=== PATIENT | male | born 1960 | race Caucasian/White ===

== ENCOUNTER 2025-04-07 07:55 | Inpatient (IN) | payer BC, SELFPAY ==
[2025-04-04 17:22] VITALS: BP 164/104
[2025-04-04 17:59] LABS: ALT (SGPT) 13 U/L (0-50); AST (SGOT) 35 U/L (17-59); Albumin 5.0 g/dl (3.5-5.0); Alkaline Phosphatase 47 U/L (38-126); Blood Urea Nitrogen 19 mg/dl (9-20); Calcium 9.2 mg/dl (8.4-10.2); Carbon Dioxide 24 mmol/L (22-30); Chloride 106 mmol/L (98-107); Glucose 111 mg/dl (70-99); Potassium 4.5 mmol/L (3.5-5.1); Sodium 137 mmol/L (135-145); Total Protein 7.4 g/dl (6.3-8.2); eGFR > 60.00
[2025-04-04 18:15] LABS: Hematocrit 40.5 % (39.0-52.0); Hemoglobin 14.1 g/dL (13.0-18.0); Mean Corp Hgb Conc. 34.8 g/dL (33.0-37.0); Mean Corpuscular Volume 90.4 fL (80.0-94.0); Nucleated Red Blood Cells % 0 % (-); Platelet Count 149 10^3/uL (130-400); Red Cell Dist. Width 13.0 % (11.5-14.5)
[2025-04-04 22:45] VITALS: BP 150/97
[2025-04-04 23:00] VITALS: BP 139/96
--- NOTE | 2025-04-04 23:00 | ED.GENMED ---
History of Present Illness
General
Chief Complaint: Fainting Sensation
Source: patient
Exam Limitations: none
Time Seen by Provider: 04/04/25 23:00
Nursing documentation reviewed up to this point in time: agreed with
History of Present Illness
History of Present Illness:
Note:
CHIEF COMPLAINT(S)
Dizziness and episodes of syncope.
HISTORY OF PRESENT ILLNESS
The patient is a 64-year-old male with a history of Parkinsons disease, CAD, mitral valve repair and placement of two stents, presenting with recurrent dizziness and syncopal episodes. The dizziness and faintness began to noticeably worsen over the
last 36 hours, occurring three times, nearly resulting in loss of consciousness in a public bathroom. These episodes were previously occasional and mostly happened at night, but they are now more frequent and intense. Patient has fallen and hit his
head multiple times. The patient notes his typical dizziness is aggravated by standing and sometimes results in falls. His blood pressure has had significant fluctuations, with postural changes noted, and recent recordings as high as 187/105 mmHg
while supine and as low as 87/50 mmHg upon standing. His astrobiologist thinks that this is happening as a result of his ropinirole and so he was started on midodrine. The patient recently had his midodrine dosage increased from 5mg to 10mg, three
times daily, to manage this. He denies headaches but has experienced falls resulting in head injuries, including hitting the back of his head. He has frequent urination episodes, particularly following these syncopal events. The patients current
medications for Parkinsons include levodopa-carbidopa, switched from pramipexole due to side effects causing hypotension. He denies chest pain, shortness of breath.
ADDITIONAL HISTORY OBTAINED FROM SOURCES OTHER THAN THE PATIENT
According to the spouse, the patients syncopal episodes have resulted in falls with head trauma. The spouse reported blood pressure readings at home varying significantly. The spouse expressed a concern about increasing frequency and severity of the
episodes, noting incoherence and loss of speech in the patient post-fall.
CHRONIC MEDICAL CONDITIONS SIGNIFICANTLY AFFECTING CARE
Chronic conditions affecting care: Parkinson disease, history of myocardial infarction, mitral valve repair, and placement of coronary stents.
REVIEW OF SYSTEMS
see HPI
PHYSICAL EXAM
Nursing notes reviewed and vital signs reviewed.
Examination findings as follows:
General: Patient is well appearing and in no acute distress; non-toxic
Skin: Warm and dry, no rashes or lesions
Head: Normocephalic, atraumatic
Eyes: Sclera non-icteric. EOMs intact.
Cardiac: Regular rate and rhythm, no murmurs
Peripheral Vascular: No lower extremity swelling or edema
Pulm: Normal respiratory effort, no wheezes, rales, rhonchi
Abdomen: No abdominal tenderness to palpation
Neuro: CN II-XII intact, no focal neurologic deficits.
Psychiatric: Appropriate mood and affect.
DIFFERENTIAL DIAGNOSIS
The Differential Diagnosis includes, in no particular order and is not limited to:
- Orthostatic hypotension
- Medication-induced hypotension
- Neurogenic orthostatic hypotension due to Parkinsons disease
- Syncope secondary to cardiac arrhythmia
- Dehydration
- Vestibular dysfunction
- Structural cardiac issues
- Autonomic dysregulation
- Syncope due to vaso-vagal episodes
- Intracranial process from repeated head trauma
PLAN
Conduct a CT scan of the head to rule out intracranial hemorrhage or injury due to recurrent head trauma from falls. Monitor blood pressure with orthostatic vitals assessments. Evaluate the necessity of a medication adjustment in consultation with
the patients primary neurologist and astrobiologist. Educate the patient and family on safety measures to prevent falls and monitor closely for future syncopal episodes. Consider referral to a astrobiologist for further evaluation of cardiovascular
control in the setting of fluctuating blood pressure and syncope.
REVIEW OF PRIOR RECORDS
No prior records in [facility] to review, no discharge summary
MDM/DISPOSITION
The patient is a 64-year-old male with a history of Parkinsons disease, CAD, mitral valve repair and placement of two stents, presenting with recurrent dizziness and syncopal episodes. He has a history of Parkinson's on crexont, rasagiline,
ropinirole, midodrine. He has been having daily syncopal episodes and falls for the past week and his gait is unsteady. reports that she can barely walk with him without having with swallowing. He is on her orthostatic hypotension at home
and his astrobiologist increase his midodrine but his symptoms seem to get worse after that. In the ER from lying to standing he drops from 130 systolically to 90 and we are unable to have him stand up. He has been getting fluids. Case discussed
with ED attending. Patient referred for admission.
Review of Systems
Review of Systems
All Other Systems: ROS reviewed and negative except as documented in HPI and ROS
Phy Exam
Physical Exam
Physical Exam:
see hpi
Course
Orders/Labs/Results
Orders:
Orders
04/04/25 17:11
Electrocardiogram (*1) Urgent
Reason for Study: Syncope
EKG- Treatment ONCE
04/04/25 17:38
CMP [Comprehensive Metabolic Panel] Urgent
Complete Blood Count/With Diff Urgent
04/04/25 23:29
Orthostatic VS- Treatment ONCE
04/04/25 23:51
0.9% Sodium Chloride 500 ml [Nss] 500 ml IV BOLUS
04/05/25
CT Head W/o Iv Contrast Urgent
Reason For Exam: head trauma, syncopal episode
04/05/25 04:57
Admit/Transfer Patient As Directed
Co-Sign Provider:
Level of Care: Observation services
Assign to:: Telemetry
Physician / Group: aristides
Diagnosis: orthostatic hypotension
Reason for Telemetry: Syncope
Date to Stop Telemetry: 04/07/25
Time to Stop Telemetry: 11:00
PRN Pain Medication Management As Directed
May give lesser potent ordered pain med per pt: Yes
preference::
Protocol:: Medication orders for pain may be administered in a
manner that supports deferring to patient preference
when the pt is:
- Requesting an ordered lesser potent pain medication.
Least to most potent pain medications are defined
as: acetaminophen < NSAID < tramadol < opioids
(morphine, oxycodone, hydromorphone).
- Requesting a lesser dose of the same medication IF
ORDERED.
- Requesting a less intrusive route of administration
if both routes are prescribed by the provider (PO <
IV).
04/05/25 04:58
Code Status As Directed
Resuscitation Status: Full Code
04/05/25 05:47
0.9% Sodium Chloride 1000 ml [Nss] 1,000 ml IV 125 mls/hr
Acetaminophen [Tylenol] 650 mg PO Q4HPRN PRN
Bisacodyl [Dulcolax] 10 mg RECTAL [id number] PRN
Docusate W/Senna [Senokot-S] 1 tablet PO BIDPRN PRN
Polyethylene Glycol Powder [Miralax] 17 grams PO DAILYPRN PRN
04/05/25 05:47
CARDIOLOGY CONSULT Routine
Consulting Provider: Khoa Ferrell
Was physician already notified: No
Reason for consult: severe orthostatic hypotension, pre-syncope, h/o mv repair
Consult Notification Routine
Specialty to Notify: Cardiology
Urinalysis Routine
Urine Sodium Routine
Activity As Directed
Activity Level: With Assistance
Intake/ Output As Directed
Frequency: Per unit guidelines
Neurological Checks As Directed
Frequency: q4h
Orthostatic Vital Signs As Directed
Orthostatic VS Frequency: q8h
Pneumatic Compression Sleeves As Directed
Type: Knee high
Vital Signs As Directed
Frequency: Per unit guidelines
Pulse Ox/spot Check [RESP] Routine
Quantity: 1
DX Deep Vein Thrombosis Video Routine
04/05/25 06:00
Echo 2D MMode Color/Doppler IN AM
Reason for Study: syncope, h/o mv repair
Regular
BNP [NT-proBNP] IN AM
Cortisol, Random IN AM
TSH Reflex To Free T4 IN AM
04/05/25 08:00
Aspirin Low Dose EC [Aspir Low (Enteric Coated)] 81 mg PO DAILY
Midodrine [ProAmatine] 10 mg PO TID
Rasagiline Mesylate 1 mg PO DAILY
Rosuvastatin Calcium [Crestor] 40 mg PO DAILY
carbidopa-levodopa [Crexont] See Dose Instructions PO TID
04/05/25 22:00
Ezetimibe [Zetia] 10 mg PO HS
ropinirole See Dose Instructions PO HS
04/07/25 11:00
DC Protocol for Telemetry ONCE
Abnormal Lab Results
04/04/25
17:38
RBC 4.48 L 10^6/uL
(4.70-6.10)
MCH 31.5 H pg
(27.0-31.0)
Lymphocytes % 19.2 L %
(20.5-51.1)
Monocytes % 9.4 H %
(1.7-9.3)
Glucose 111 H mg/dl
(70-99)
04/04/25 17:38
04/04/25 17:38
Vital Signs
Initial and Last Documented VS:
Initial Vital Signs
Temp Pulse Resp BP Pulse Ox
99 F 90 16 164/104 98
04/04/25 17:22 04/04/25 17:22 04/04/25 17:22 04/04/25 17:22 04/04/25 17:22
Last Documented Vital Signs
Temp Pulse Resp BP Pulse Ox
99 F 77 20 118/70 99
04/04/25 17:22 04/05/25 04:30 04/05/25 03:30 04/05/25 04:00 04/05/25 00:00
*Pulse Oximetry
SaO2: 99
Oxygen Mode of Delivery: Room air
Patient hypoxic: no
*Critical Care Note
Total Time (30-74mins, 75-104mins- exclusive of procedures): Not Applicable
ED Attending Note
-
Portions of this chart may have been created with voice recognition software.� Occasional wrong word or��sound alike� substitutions may have occurred due to the inherent limitations of voice recognition software.
Discharge Plan
Departure
Patient Disposition: Admit
Date of Disposition: 04/05/25
Time of Disposition: 03:08
Admit to: Med/Surg
Presentation/result/management discussed w/ accepting MD/DO: Hospitalist
Condition: Fair
Discharge Problem:
Orthostatic hypotension
Interventions
Interventions:
*Risk Screen - Suicide Last Done: 04/04/25 17:25
*General Assessment Last Done: 04/04/25 22:45
*Neglect/Abuse Screening Last Done: 04/04/25 17:25
*ED- Fall Risk Assessment Last Done: 04/04/25 22:45
*ED COVID-19 Vaccine History Last Done: 04/04/25 22:45
ED- Cardiac Assessment Last Done: 04/04/25 22:45
ED- Neurological Assessment Last Done: 04/04/25 22:45
[2025-04-04 23:34] VITALS: BP 138/95
[2025-04-04 23:36] VITALS: BP 90/65
[2025-04-04 23:43] VITALS: BP 138/95; BP 90/65; PULSE 86; PULSE 88
--- NOTE | 2025-04-04 23:43 | EDRN ---
Informed [facility] about patients orthostatic vitals, did not stand patient as his blood pressure dropped from laying to sitting.
[2025-04-05] VITALS (22 sets, daily range): BP systolic 77–149; BP diastolic 40–118; PULSE 73–90; BMI 23.1
[2025-04-05] MEDS: NSS 500 IV (00:14)
--- NOTE | 2025-04-05 01:08 | EDRN ---
Updated patient on when going to CT and patient used urinal to urinate, no complaints.
--- NOTE | 2025-04-05 04:32 | HPS.HSE ---
Family Physician
-
Family Physician: NOT KNOW UNKNOWN - PT DOES
Chief Complaint
-
Orthostatic syncope
History of Present Illness
This is a 61-year-old male with past medical history significant for CAD, severe MR s/p repair, Parkinson's disease on COVID evaluated by, rasagiline and ropinirole, hyperlipidemia presenting to the emergency department with concern after
presyncopal episodes.
Patient has been having daily syncopal episodes and falls over the last 1 week. He has an unsteady gait now. Spouse reports that he is able to barely walk without support. Patient reports that he slowly developed metastatic hypotension as well as
dizzy spells since initiation of ropinirole. He reports that the ropinirole has improved his symptoms of Parkinson's. He is neurologist that has reduced the dose from 2 mg to 1 mg. At the same time
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
Today he had multiple syncopal episodes but does not pass out. He has undergone training on how to get up slowly to avoid dizziness and orthostatic syncope. Today he was closing the door when it suddenly became weak and his leg gave way falling
down and almost smacking his head in a dangerous way. He called his financial services internship who referred him to the emergency department for evaluation.
He has no chest pain, palpitations orthopnea or PND. He denies any diarrhea. He denies any extensive stay in the sun. Reports that his diet has been stable without any decreased appetite. There has not been any weight loss. There has not been
any lower extremity swelling. Denies any new murmurs. Patient denies any melena or hematochezia.
In the emergency department he was afebrile with a temp of 99F, blood pressure was 134/80 supine and systolically decreased to 90 with standing despite getting IV fluids. He was not tachycardic.
Head CT was unremarkable.
CBC was unremarkable with a hemoglobin of 14.1.
ECG shows normal sinus rhythm at a rate of 66 with 4 degree AV block.
Electrolytes were normal with a potassium of 4.5, bicarb of 24 with normal BUN and creatinine.
Medical History
Past Medical History
Past Medical History: Reports Hypercholesterolemia and Other
Additional Past Medical History:
Coronary disease status post stent, severe mitral regurgitation status post repair
Past Surgical History: Reports Cardiac (Mitral valve repair)
Social History
Tobacco: Non-smoker
Alcohol: None
Drug: None
Personal:
Living: With Family
Family History
Family History: Not pertinent
Allergies / Home Medications
Allergies reflects when Allergies were last updated in [facility].
Home Medications with original date entered in [facility]
Allergy/Medication List:
Allergies
Allergy/AdvReac Type Severity Reaction Status Date / Time
No Known Allergies Allergy Unverified 04/04/25 17:25
Home Medications
aspirin 81 mg tablet 81 mg PO DAILY 04/05/25
carbidopa 87.5 mg-levodopa ER 350 mg capsule,immed and extend release (Crexont) 2 cap PO TID 04/05/25
ezetimibe 10 mg tablet 10 mg PO HS 04/05/25
midodrine 10 mg tablet 10 mg PO TID 04/05/25
rasagiline 1 mg tablet 1 mg PO DAILY 04/05/25
ropinirole 2 mg tablet,extended release 24 hr 2 mg PO HS 04/05/25
rosuvastatin 40 mg tablet 40 mg PO DAILY 04/05/25
Review of Systems
-
Constitutional: Reports No Symptoms
EENT: Reports No Symptoms
Respiratory: Reports No Symptoms
Cardiac: Reports No Symptoms
Abdomen/GI: Reports No Symptoms
: Reports No Symptoms
Musculoskeletal: Reports No Symptoms
Skin: Reports No Symptoms
Neurological: Reports Dizzy
Endocrine: Reports No Symptoms
Hematologic/Lymphatic: Reports No Symptoms
Psych: Reports No Symptoms
Physical Exam
Vital Signs
Vital Signs
Temp Pulse Resp BP Pulse Ox
99 F 93 24 134/83 99
04/04/25 17:22 04/05/25 02:30 04/05/25 02:15 04/05/25 02:00 04/05/25 00:00
Physical Exam
General: Well Developed, Well Nourished and No Apparent Distress
HEENT: NormoCephalic, Moist mucous membranes and Atraumatic
Respiratory: Clear
Cardiac: S1/S2 and Regular Rhythm; No Murmur or Rub
GI: Soft, Non Tender, Non Distended and Normal Bowel Sounds; No Organomegaly
Rectal: Deferred by Provider
Musculoskeletal: No Clubbing, No Cyanosis and No Edema
Skin: No Rash
Neuro: Nonfocal/grossly intact
Laboratory Results
-
04/04/25 17:38
04/04/25 17:38
Laboratory Results
Total Bilirubin 1.1 mg/dl (0.2-1.3) 04/04/25 17:38
AST 35 U/L (17-59) 04/04/25 17:38
ALT 13 U/L (0-50) 04/04/25 17:38
Alkaline Phosphatase 47 U/L (38-126) 04/04/25 17:38
Data Reviewed
-
CT Scan: Report Reviewed by me
Medical Tests (Nuc Med, Echo, EKG etc): Image Personally Visualized and interpreted
Lab Data: Labs Reviewed by me
Old Records: Reviewed
Impression/Plan
-
IMPRESSION:
61-year-old male with past medical history significant for Parkinson's disease, CAD status post stenting, mitral valve repair, development of orthostatic hypotension and recurrent dizziness and syncopal episode was brought to the emergency
department for syncopal episode and a fall by spouse with concern for worsening symptoms. Found to be orthostatic by about 40 systolic blood pressure points today in the emergency department. Workup otherwise negative.
PLAN:
Syncope/orthostatic hypotension
- Admit to telemetry observation
- Continue hydration for now, check urine sodium
- Repeat orthostatics in the morning, if improving with fluids, can recommend salt intake or fludrocortisone
- Check echocardiogram
- Check carotid ultrasounds
- Check cortisol and tsh
- If still orthostatic with normal echo and another liter of fluid resuscitation, will need medication adjustment
- Patient already on midodrine 10 mg 3 times daily, next dose will be combination of midodrine with fludrocortisone or with droxidopa,
- cardiology consult (patient follows with Dr. Sameer Sanz at [facility].
- Consider nephrology consult but for now will have to continue LUCINDA correct sounds, ropinirole and rasagiline
DVT prophylaxis�SCDs
CODE STATUS�full code
--- NOTE | 2025-04-05 04:38 | EDRN ---
Hospitalist in at bedside working on admission.
[2025-04-05] MEDS: NSS 1000 IV ×2 (06:17→14:27)
[2025-04-05 07:38] LABS: Cortisol, Random 6.1 ug/dl
[2025-04-05] MEDS: CRESTOR 40 MG PO (09:12)
[2025-04-05] MEDS: RASAGILINE MESYLATE 1 MG PO (09:12)
[2025-04-05] MEDS: ASPIR LOW (ENTERIC COATED) 81 MG PO (09:12)
[2025-04-05 09:21] LABS: Urine Character Clear (Clear)
--- NOTE | 2025-04-05 09:25 | CM ---
CM reviewed chart and met with pt bedside in ED. IA completed, OBS form signed. Lives with , multistory home, no KENDRA, has first floor BR/BA
Independent in ADLs, personal care, driving and ambulation at baseline. Uses walking stick for ambulation
No DME in home, No hx VN/SNF
PCP: Gerhard Antunez
Pharmacy: [facility]
Discharge plan: Anticipate home, watch for needs
[2025-04-05] MEDS: NON-FORMULARY ITEM 2 CAP PO ×3 (10:07→21:23)
--- NOTE | 2025-04-05 11:37 | CON.CAR ---
Addendum entered and electronically signed by Franki Low MD 04/05/25 15:36:
I saw and examined the patient.
The Field Technical Support Consultant's note was reviewed and I agree with the note.
Comment:
GEN: No distress, awake, Ox3
HEENT: supple, anicteric, mmm
LUNGS: CTA, no wheezes/rales
CV: Reg, S1/S2, 2/6 syst apex
ABD: soft, BS+, NT/ND
EXT: No edema
NEURO: mild tremor
SKIN: No rash
plan:
64-year-old male with past medical history of Parkinson's disease, coronary artery disease, mitral valve repair 2014 with resultant moderate mitral regurgitation followed with [facility] presents with multiple episodes of dizziness,
lightheadedness and syncope. He has had chronic symptoms of lightheadedness in the past but things have worsened recently. It was felt he was dehydrated recently and had an episode in the middle of the day. His usual episodes syncope are at
night. He has previously been on carbidopa/levodopa but was started a year ago on ropinirole. Since the addition of the ropinirole and he has had orthostasis and was placed on midodrine. We are asked to evaluate his syncope.
I suspect his syncope is multifactorial likely combination of underlying Parkinson's disease and the addition of ropinirole. I will consult neurology to have them evaluate the long-term benefit of the ropinirole and whether we could stop this
medication and follow his orthostasis/dizziness.
Echocardiogram today with a preserved ejection fraction. His mitral valve repair is unchanged with moderate mitral regurgitation.
Will continue hydration today but with moderate mitral regurgitation would not over hydrate. Will add compression stockings to try to help with orthostasis.
Continue medical therapy for coronary artery disease. He will continue the aspirin and rosuvastatin. Would avoid blood pressure medications with his orthostasis and syncope
Continue to follow with telemetry
Original Note:
Consultation
Consultation Request
Date/Time Consultation Performed: 04/05/25
Requesting Provider: Dr. Mera
Performing Provider: Ondina Clay PA-C for Dr. Low
Reason for Consultation: syncope
Medical History
-
Chief Complaint: syncope
History of Present Illness:
Patient is a 64 yo M with history of Parkinson's disease followed by [place] [facility] who is chronically maintained on carbidopa-levodopa. He reports he was started about a year ago on ropinirole in addition. Since that time he has had issues with
orthostatic hypotension and syncope. He had been started on midodrine due to symptoms and this was uptitrated after he had 5 syncopal episodes in 1 evening when they were travelling in the [place] in December. This was felt to be in part due to
dehydration and 'overdoing it.' He reports he has had some intermittent lightheadedness since that time, mostly in the evenings/overnight hours after he takes his ropinirole and gets up to urinate from bed. He had previously been on Flomax which
was stopped. He had several syncopal episodes in the last 3 days but then yesterday he had an episode at 4PM, which has never happened before. He states he was outside attempting to open the door as they were getting ready to go see a movie and hit
his head on the concrete. Of note, by review of records from primary information technology assistant patient also has prior MV repair with at least mod MR by most recent echo in 08/2024. Cardiology consulted for assistance of orthostasis management.
PMH:
Recurrent syncopal episodes
Orthostatic hypotension
Parkinson's disease
Mitral valve prolapse with severe MR status post mitral valve repair 02/2016, Dr. Hinson
at least mod MR by echo 08/2024
History of postoperative atrial fibrillation 02/2016 without further recurrence
CAD status post NSTEMI with RCA PCI 11/2015
Dyslipidemia
History of fatigue with beta-dianna
Past Medical History
Past Medical History: Other (in HPI)
Social History
Tobacco: Non-Smoker
Alcohol: None
Personal:
Living: With Family
Allergies / Home Medications
Allergy/AdvReac Type Severity Reaction Status Date / Time
No Known Allergies Allergy Unverified 04/04/25 17:25
�Medication �Instructions �Recorded �Confirmed �Type
aspirin 81 mg tablet 81 mg PO DAILY Heart 04/05/25 04/05/25 History
Disease/Condition
carbidopa 87.5 mg-levodopa ER 350 2 cap PO TID Neurological Condition 04/05/25 04/05/25 History
mg capsule,immed and extend
release (Crexont)
ezetimibe 10 mg tablet 10 mg PO HS High Cholesterol 04/05/25 04/05/25 History
fluoxetine 20 mg tablet 20 mg PO DAILY Mental 04/05/25 04/05/25 History
Health/Anxiety
midodrine 10 mg tablet 10 mg PO TID Blood Pressure 04/05/25 04/05/25 History
rasagiline 1 mg tablet 1 mg PO DAILY Neurological 04/05/25 04/05/25 History
Condition
ropinirole 2 mg tablet,extended 2 mg PO HS Neurological Condition 04/05/25 04/05/25 History
release 24 hr
rosuvastatin 40 mg tablet 40 mg PO DAILY High Cholesterol 04/05/25 04/05/25 History
Review of Systems
-
History Source: Patient and Family
All other systems: Negative unless noted
Physical Exam
Vital Signs
Temp Pulse Resp BP Pulse Ox
97.8 F 74 16 129/78 97
04/05/25 07:31 04/05/25 09:13 04/05/25 07:31 04/05/25 09:13 04/05/25 07:31
Lab Results
04/04/25 17:38
04/04/25 17:38
Rmm-V-Updjbfhdmfg Pept 343 pg/ml 04/05/25 06:16
Physical Exam
General: No Apparent Distress and Comfortable
HEENT: Normocephalic, Anicteric and Moist Mucous Membranes
Respiratory: Clear and Non Labored Respirations
Cardiac: S1/S2, Regular Rhythm and Murmur
GI: Soft, Non Tender, Non Distended and Normal Bowel Sounds
Musculoskeletal: No Clubbing, No Cyanosis and No Edema
Skin: Warm and Dry
Neuro: AO x 3 and Other (slow speech)
Impression / Plan
-
Primary Speech Clinician: Dr. Sanz of [facility]
Assessment:
Presentation with syncope
Recurrent syncopal episodes
Orthostatic hypotension
Parkinson's disease
Mitral valve prolapse with severe MR status post mitral valve repair 02/2016, Dr. Hinson
At least mod MR by echo 08/2024
History of postoperative atrial fibrillation 02/2016 without further recurrence
CAD status post NSTEMI with RCA PCI 11/2015
Dyslipidemia
History of fatigue with beta-dianna
ECHO 08/31/2024: Technically difficult study, EF 59%, #38 mitral annuloplasty band with neocord insertion in 2016, possible flail segment of a portion of posterior leaflet distal to near cord insertion, at least moderate eccentric anteriorly
directed jet of MR, transmitral gradient of 4 mmHg, severely dilated LA, at least mild TR
Plan:
- Patient presented with syncope. He has history of Parkinson's disease with orthostatic hypotension and recurrent syncopal episodes having recently been uptitrated on midodrine.
- head CT negative for acute abnormality
- records obtained and reviewed from primary information technology assistant office including last echo from 08/31/24 and office visit from 03/01/25
- He is on several medications which carry side effects of orthostasis
- his Parkinson's disease could also be contributing to dysautonomia
- would recommend neurology input to discuss possible alternatives to Parkinson's regimen which may carry less orthostatic side effects
- follow ortho VS
- add compression stockings
- could consider florinef, and abd binder if no better alternatives
- he also has history of MV repair with at least mod MR by last echo which could also be contributing to syncope. check echo
- EKG SR with 1st degree av block. follow on tele given history of post op afib
- reviewed with nursing
- reviewed with patient and multiple family members at bedside
- d/w hospitalist via TT
Data Reviewed
-
EKG: Tracing Personally Visualized and interpreted
CT Scan: Report Reviewed by me
Medical Tests (Nuc Med, Echo etc): Report Reviewed by me
Labs: Labs Reviewed by me
Old Records: Requested and Reviewed
--- NOTE | 2025-04-05 13:27 | CON.NEURO4 ---
Addendum entered and electronically signed by Matty Cooney MD 04/05/25 17:13:
Studies reviewed.
I have personally examined the patient. I reviewed and agree with the RIPSHEAR OPERATOR's Note.
My addenda:
Awake, interactive. No acute distress.
Speech mildly hypophonic.
Follows 2-step requests w/o difficulty. No tremor.
Extra-ocular movements with a rhythmic nystagmus with primary gaze
Facial movements full and symmetric. Hearing intact to normal conversational volume.
Normal UE movements bilaterally.
Neck: full ROM.
Chest: no dyspnea
Heart: no JVD
Ext: (-) Clubbing, (-) Cyanosis, (-) Edema
IMPRESSIONS/RECOMMENDATIONS:
Abrupt onset of worsening gait with previous diagnosis of parkinsonism. 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
The patient's gait dysfunction is most likely secondary to significant orthostatic hypotension and worsened currently by exposure to extreme heat
Continue midodrine
Add abdominal binder
Encourage fluids
Patient may require additional medication for blood pressure elevation in the form of fludrocortisone or droxidopa
Continue carbidopa/levodopa, continue ropinirole
Follow orthostatic blood pressures with 3-minute increments between each body position change
D/W patient / family
All questions answered.
Will continue to follow patient.
Original Note:
Consultation - Neurology 4
-
CONSULTING PHYSICIAN: Matty Cooney MD
REFERRING PHYSICIAN: Hospitalists/Dr. Mera
DICTATED BY: DE Bower
DATE/TIME OF REQUEST: 04/05/25
DATE/TIME OF CONSULTATION: 04/05/25
Reason for Consultation: Orthostatic hypotension
History of Present Illness:
This is a 64-year-old right-handed male who has presented to the hospital on 04/04/25 with report of frequent passing out episodes. Patient is followed as an outpatient by Neurology Dr. Roger at [facility] for Parkinson's disease. In 2017 he
developed a right upper extremity tremor, bradykinesia, and rigidity and was ultimately diagnosed with Parkinson's disease in February 2019.
Patient and his spouse report that in October 2024 he started to have dizziness and had a fainting episode/fell to the ground. His neurologist decreased his ropinirole dosage from 4mg to 2mg at that time and he reports his symptoms improved. Then
while traveling in [place] a couple of months later he had another fainting/falling episode. He eventually saw his Securities Underwriter Dr. Sanz in February who started him on midodrine for orthostatic hypotension. They report he was improved after starting this,
until three days ago when he started having dizziness again and has now fainted three times in the past three days. They called his Neurologist and received no call back so they notified his Securities Underwriter who referred him to the ER. CT head was
obtained on arrival and is negative for any acute abnormalities. Blood pressure has been as low as 84/50. Patient denies any headache, vision changes, speech/swallow difficulty, numbness, and focal weakness. He reports anosmia. His has been
recording his orthostatic blood pressure readings at home for his usual neurologist, and that last week his SBP went from 145 sitting to 117 standing.
Past Medical History: Parkinson's disease, HLD, CAD, severe mitral regurgitation
Surgical History: Mitral valve repair
Family History: Reviewed and noncontributory.
Social History: Denies tobacco, alcohol, and illicit drug use.
Allergies: No known allergies.
Home Medications: See below.
Review of Symptoms:
Patient denies any fever, headache, chest pain, shortness of breath, GI or symptoms.
�Per the HPI.�All systems are reviewed negative except above.
Physical Exam:
The patient is afebrile, abdomen is nondistended, breathing is unlabored, skin is warm and dry, RLE with a rash, no edema.
Neurologic Examination:
The patient is awake, alert and oriented x 3. He is able to follow commands and answer questions appropriately. There is no aphasia or dysarthria. On cranial nerve assessment, pupils are 3 mm bilateral, round and reactive to light and
accommodation. Visual jordan are full. Extraocular movements are intact. Slight nystagmus noted with right gaze. Facial sensations are intact and bilaterally symmetrical, there is no facial asymmetry. Hearing is intact bilaterally to normal
conversation volume. Tongue palate and uvula are midline. Sternocleidomastoid strengths are full bilaterally. Motor strengths are 5/5 bilateral upper and lower extremities on medical research Belkofski scale. There is no drift or involuntary movement
noted. Deep tendon reflexes are 2+ bilateral upper and lower extremities and Babinski is absent bilaterally. Sensations of touch, temperature and vibration are intact and bilaterally symmetrical. Coordination is intact by finger to nose bilaterally.
Lab Results: See below.
Neuro Imaging:
1. CT Head 04/05/25: No acute intracranial abnormality.
Differentials for the patient's presentation include:
1. Orthostatic hypotension in the setting of a chronic neurodegenerative disease, Parkinson's disease, producing frequent dizziness/falls.
Patient has the following risk factors for their symptoms: Parkinson's disease
Recommendations:
-Increase water intake, drink as much as possible.
-Continue Midodrine 10mg TID.
-Attempt to reduce caffeine intake.
-Wear an abdominal binder daily when OOB.
-Slow position changes. Would not sleep with the HOB elevated to avoid hypertension while lying flat.
-Okay to continue Mediterranean diet, okay to be liberal with salt intake.
-Follow-up with as an outpatient with his usual Neurologist at [place] as soon as possible.
Discussed patient care with: Dr. Cooney, the patient, patient's family
Vital Signs and Labs
-
Vital Signs and Labs:
Vital Signs
Temp Pulse Resp BP Pulse Ox
97.8 F 73 15 103/75 99
04/05/25 07:31 04/05/25 13:30 04/05/25 11:30 04/05/25 13:00 04/05/25 13:30
Lab Results
04/04/25 17:38
04/04/25 17:38
Sodium 137 mmol/L (135-145) 04/04/25 17:38
Potassium 4.5 mmol/L (3.5-5.1) 04/04/25 17:38
BUN 19 mg/dl (9-20) 04/04/25 17:38
Glucose 111 mg/dl (70-99) H 04/04/25 17:38
Calcium 9.2 mg/dl (8.4-10.2) 04/04/25 17:38
Sct-P-Fecegieqgpg Pept 343 pg/ml 04/05/25 06:16
Medications
-
Active Medications
Generic Name Dose Route Start Last Admin
Trade Name Freq PRN Reason Stop Dose Admin
Acetaminophen 650 mg 04/05/25 05:47
Acetaminophen 325 Mg Tablet PO 05/03/25 05:46
Q4HPRN PRN
mild pain/ARREDONDO/temp> 100.4F
Aspirin 81 mg 04/05/25 08:00 04/05/25 09:12
Aspirin 81 Mg (Enteric Coated) Tablet PO 05/03/25 07:59 81 mg
DAILY KATHARINA Administration
Bisacodyl 10 mg 04/05/25 05:47
Bisacodyl 10 Mg Rectal Suppository RECTAL 05/03/25 05:46
[id number] PRN
constipation
Ezetimibe 10 mg 04/05/25 22:00
Ezetimibe (Zetia) 10 Mg Tablet PO 05/03/25 21:59
HS KATHARINA
Sodium Chloride 1,000 mls @ 125 mls/hr 04/05/25 05:47 04/05/25 06:17
Nss IV 1,000 mls
.Q8H KATHARINA Administration
Midodrine 10 mg 04/05/25 08:00 04/05/25 09:13
Midodrine 5 Mg Tablet PO 05/03/25 07:59 10 mg
TID KATHARINA Administration
Carbidopa-Levodopa [ 0 cap 06/25/25 08:00 04/05/25 10:07
Crexont] 87.5-350 Mg PO 05/03/25 07:59 2 cap
Capsule,Ir -Extend TID KATHARINA Administration
Rel Take 2 Capsule
Po Tid
Ropinirole 2 Mg 0 mg 04/05/25 22:00
Tablet Extended PO 05/03/25 21:59
Release 24 Hr Po Hs HS KATHARINA
Polyethylene Glycol 17 grams 04/05/25 05:47
Polyethylene Glycol Powder 17 Grams Packet PO 05/03/25 05:46
DAILYPRN PRN
constipation
Rasagiline 1 mg 04/05/25 08:00 04/05/25 09:12
Rasagiline (Azilect) 0.5 Mg Tablet (Non-Form) PO 05/03/25 07:59 1 mg
DAILY KATHARINA Administration
Rosuvastatin Calcium 40 mg 04/05/25 08:00 04/05/25 09:12
Rosuvastatin (Crestor) 20 Mg Tablet PO 05/03/25 07:59 40 mg
DAILY KATHARINA Administration
Senna/Docusate Sodium 1 tablet 04/05/25 05:47
Docusate W/Senna (Antonieta-Colace) Tablet PO 05/03/25 05:46
BIDPRN PRN
constipation
Sodium Chloride 0 flush 04/05/25 06:00
Sodium Chloride 0.9% (Flush) Syringe IV 05/03/25 05:59
PER PROTOCOL KATHARINA
Home Medications
�Medication �Instructions �Recorded
aspirin 81 mg tablet 81 mg PO DAILY Heart 04/05/25
Disease/Condition
carbidopa 87.5 mg-levodopa ER 350 2 cap PO TID Neurological Condition 04/05/25
mg capsule,immed and extend
release (Crexont)
ezetimibe 10 mg tablet 10 mg PO HS High Cholesterol 04/05/25
fluoxetine 20 mg tablet 20 mg PO DAILY Mental 04/05/25
Health/Anxiety
midodrine 10 mg tablet 10 mg PO TID Blood Pressure 04/05/25
rasagiline 1 mg tablet 1 mg PO DAILY Neurological 04/05/25
Condition
ropinirole 2 mg tablet,extended 2 mg PO HS Neurological Condition 04/05/25
release 24 hr
rosuvastatin 40 mg tablet 40 mg PO DAILY High Cholesterol 04/05/25
--- NOTE | 2025-04-05 13:50 | W.PN.UPDATE ---
Update Note
Progress Note Update
Seen and admitted by Dr. Alston.
Admitted for near syncope, falls and discovered to have orthostatic hypotension. Seen by cardiology. Will consult neurology for concern of orthostatic hypotension secondary to Parkinson's medication versus Parkinson disease itself. Discussed with
at bedside
[2025-04-05] MEDS: ZETIA 10 MG PO (21:24)
[2025-04-06] VITALS (7 sets, daily range): BP systolic 55–169; BP diastolic 35–97; PULSE 79–104; BMI 23.6
[2025-04-06] MEDS: NSS 1000 IV ×2 (01:06→11:28)
[2025-04-06] MEDS: CRESTOR 40 MG PO (07:49)
[2025-04-06] MEDS: RASAGILINE MESYLATE 1 MG PO (07:50)
[2025-04-06] MEDS: ASPIR LOW (ENTERIC COATED) 81 MG PO (07:50)
[2025-04-06] MEDS: NON-FORMULARY ITEM 2 CAP PO ×3 (07:51→22:10)
[2025-04-06] MEDS: FLORINEF 0.1 MG PO (08:55)
--- NOTE | 2025-04-06 10:02 | CM ---
Pt admitted for falls and orthostatic hypotension.
Requested PT eval from MD to assist in dc plan.
Neurology and Cardiology involved .
PLAN Will depend on PT eval and hospital course of care
--- NOTE | 2025-04-06 11:03 | W.PN.NEURO.1 ---
Addendum entered and electronically signed by Matty Cooney MD 04/06/25 13:39:
Studies reviewed.
I have personally examined the patient. I reviewed and agree with the KNIFEMAN's Note.
My addenda:
Awake, alert, interactive. No acute distress.
Speech intact.
Follows 2-step requests w/o difficulty. No tremor.
Extra-ocular movements grossly intact.
Facial movements full and symmetric. Hearing intact to normal conversational volume.
Normal UE movements bilaterally.
Neck: full ROM.
Chest: no dyspnea
Heart: no JVD
Ext: (-) Clubbing, (-) Cyanosis, (-) Edema
IMPRESSIONS/RECOMMENDATIONS:
Abrupt onset of worsening of underlying gait secondary to diagnosis of Parkinson's disease
Abdominal binder, encourage fluids, start fludrocortisone
Will hold Ropinirole
D/W patient / family
All questions answered.
Will continue to follow as needed. Patient should follow-up with usual outpatient neurologist.
Original Note:
Documented by User: Jewels Rodrigues NP 04/06/25 12:15
Today's Communication / Plan
-
.
Neuro Assessment/Plan
Assessment
Abrupt onset of worsening gait with previous diagnosis of parkinsonism. 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
The patient's gait dysfunction is most likely secondary to significant orthostatic hypotension and worsened currently by exposure to extreme heat
Plan
Add fludrocortisone 0.1mg daily
Continue midodrine
Add abdominal binder
Encourage fluids
Stop ropinirole
Continue carbidopa/levodopa
Follow orthostatic blood pressures with 3-minute increments between each body position change
Follow-up with your outpatient Neurologist
Subjective/Objective
Subjective Data
Date of Service: April 06, 2025
Hypotensive overnight. Patient reports feeling dizzy with sitting up/standing at times. He denies any headache, vision changes, speech/swallowing difficultly, numbness, and weakness. His is concerned about a 10 pound weight-loss in the past two
months.
Objective Data
Vital Signs
Temp Pulse Resp BP Pulse Ox
98.3 F 88 16 81/53 98
04/06/25 07:00 04/06/25 07:50 04/06/25 07:00 04/06/25 07:50 04/06/25 09:30
Lab Results
04/04/25 17:38
04/04/25 17:38
Sodium 137 mmol/L (135-145) 04/04/25 17:38
Potassium 4.5 mmol/L (3.5-5.1) 04/04/25 17:38
BUN 19 mg/dl (9-20) 04/04/25 17:38
Glucose 111 mg/dl (70-99) H 04/04/25 17:38
Calcium 9.2 mg/dl (8.4-10.2) 04/04/25 17:38
Hjv-L-Yjspxwciypt Pept 343 pg/ml 04/05/25 06:16
Patient Allergies
No Known Allergies Allergy (Unverified 04/04/25 17:25)
Review of Systems
-
History Source: Patient
EENT: Negative Decreased Vision or Swallowing Difficulty
Respiratory: Negative Cough or Trouble Breathing
Cardiac: Negative Chest Pain or Palpitations
Abdomen/GI: Negative Nausea
Genitourinary: Negative Difficulty Voiding
Neuro: Dizzy and Tremors; Negative Headache, Weakness, Numbness or Speech Problem
Physical Exam
-
General: Appears Chronically Ill (cachectic)
Eyes: No Ptosis and PERRLA
HEENT: Normocephalic and Atraumatic
Neck: Full Range of Motion
Respiratory: No Dyspnea
GI: Non-distended
Extremities: No Clubbing, No Cyanosis and No Edema
Psych: Unremarkable
Extended Neurological Exam
Mood & Affect: Mood Unremarkable and Affect Unremarkable
Attention Span & Concentration: Awake, Alert and Interactive
Memory: Reduced (AAOx3 but a reduced historian)
Tremor: Head Tremor Absent; Negative Hand Tremor Absent (LUE intermittent low amplitude semi rhythmic tremor at rest)
Speech: Quality Unremarkable, Quantity Unremarkable and Rate of Production Unremarkable
Cranial Nerve II: Left Eye: Pupillary Reactivity Unremarkable, Pupillary Size Unremarkable and Visual Lim Intact
Cranial Nerve II: Right Eye: Pupillary Reactivity Unremarkable, Pupillary Size Unremarkable and Visual Lim Intact
Cranial Nerves III, IV, : Extraocular Movement: Extraocular Movement Full in all Directions
Cranial Nerve V: Facial Sensation: Intact to Light Touch
Cranial Nerve VII: Facial Symmetry: Normal Facial Symmetry
Cranial Nerve VIII: Hearing: Unremarkable Hearing to Normal Conversational Volume
Cranial Nerves IX, X: Palate Movement: Palate Elevation Symmetric
Cranial Nerve XI: Shoulder Shrug: Unremarkable
Cranial Nerve XII: Tongue Protusion: Midline
Muscle Strength, Overall: Full Throughout
Muscle Bulk & Tone: Bulk Unremarkable and Tone Unremarkable
Pronator Drift: No Drift in Upper Extremities and No Drift in Lower Extremities
Data Reviewed
-
CT Head: Report Reviewed and Image Reviewed
Orthostatic Testing: Report Reviewed
Labs: Report Reviewed
Reviewed with: Physician, Patient and Family
Medications
-
Active Medications
Generic Name Dose Route Start Last Admin
Trade Name Freq PRN Reason Stop Dose Admin
Acetaminophen 650 mg 04/05/25 05:47
Acetaminophen 325 Mg Tablet PO 05/03/25 05:46
Q4HPRN PRN
mild pain/ARREDONDO/temp> 100.4F
Aspirin 81 mg 04/05/25 08:00 04/06/25 07:50
Aspirin 81 Mg (Enteric Coated) Tablet PO 05/03/25 07:59 81 mg
DAILY KATHARINA Administration
Bisacodyl 10 mg 04/05/25 05:47
Bisacodyl 10 Mg Rectal Suppository RECTAL 05/03/25 05:46
[id number] PRN
constipation
Ezetimibe 10 mg 04/05/25 22:00 04/05/25 21:24
Ezetimibe (Zetia) 10 Mg Tablet PO 05/03/25 21:59 10 mg
HS KATHARINA Administration
Fludrocortisone Acetate 0.1 mg 04/06/25 09:00 04/06/25 08:55
Fludrocortisone Acetate 0.1 Mg Tablet PO 05/04/25 08:59 0.1 mg
DAILY KATHARINA Administration
Sodium Chloride 1,000 mls @ 125 mls/hr 04/05/25 05:47 04/06/25 11:28
Nss IV 1,000 mls
.Q8H KATHARINA Administration
Midodrine 10 mg 04/05/25 08:00 04/06/25 07:50
Midodrine 5 Mg Tablet PO 05/03/25 07:59 10 mg
TID KATHARINA Administration
Carbidopa-Levodopa [ 0 cap 04/05/25 08:00 04/06/25 07:51
Crexont] 87.5-350 Mg PO 05/03/25 07:59 2 cap
Capsule,Ir -Extend TID KATHARINA Administration
Rel Take 2 Capsule
Po Tid
Ropinirole 2 Mg 0 mg 04/05/25 22:00
Tablet Extended PO 05/03/25 21:59
Release 24 Hr Po Hs HS KATHARINA
Polyethylene Glycol 17 grams 04/05/25 05:47
Polyethylene Glycol Powder 17 Grams Packet PO 05/03/25 05:46
DAILYPRN PRN
constipation
Rasagiline 1 mg 04/05/25 08:00 04/06/25 07:50
Rasagiline (Azilect) 0.5 Mg Tablet (Non-Form) PO 05/03/25 07:59 1 mg
DAILY KATHARINA Administration
Rosuvastatin Calcium 40 mg 04/05/25 08:00 04/06/25 07:49
Rosuvastatin (Crestor) 20 Mg Tablet PO 05/03/25 07:59 40 mg
DAILY KATHARINA Administration
Senna/Docusate Sodium 1 tablet 04/05/25 05:47
Docusate W/Senna (Antonieta-Colace) Tablet PO 05/03/25 05:46
BIDPRN PRN
constipation
Sodium Chloride 0 flush 04/05/25 06:00
Sodium Chloride 0.9% (Flush) Syringe IV 05/03/25 05:59
PER PROTOCOL KATHARINA
Home Medications
�Medication �Instructions �Recorded
aspirin 81 mg tablet 81 mg PO DAILY Heart 04/05/25
Disease/Condition
carbidopa 87.5 mg-levodopa ER 350 2 cap PO TID Neurological Condition 04/05/25
mg capsule,immed and extend
release (Crexont)
ezetimibe 10 mg tablet 10 mg PO HS High Cholesterol 04/05/25
fluoxetine 20 mg tablet 20 mg PO DAILY Mental 04/05/25
Health/Anxiety
midodrine 10 mg tablet 10 mg PO TID Blood Pressure 04/05/25
rasagiline 1 mg tablet 1 mg PO DAILY Neurological 04/05/25
Condition
ropinirole 2 mg tablet,extended 2 mg PO HS Neurological Condition 04/05/25
release 24 hr
rosuvastatin 40 mg tablet 40 mg PO DAILY High Cholesterol 04/05/25

Documented by User: Matty Cooney MD 04/06/25 13:35
Neuro Assessment/Plan
Plan
Add fludrocortisone 0.1mg daily
Continue midodrine
Add abdominal binder
Encourage fluids
Stop ropinirole
Continue carbidopa/levodopa
Follow orthostatic blood pressures with 3-minute increments between each body position change
Follow-up with your outpatient Neurologist
--- NOTE | 2025-04-06 13:19 | W.PN.CARDCBS ---
Addendum entered and electronically signed by Edward Rosales MD 04/06/25 16:04:
I saw and examined the patient.
The Tooth Polisher's note was reviewed and I agree with the note.
Comment: Briefly, 64-year-old man past medical history of CAD status post PCI, MR status post mitral valve repair, Parkinson's and orthostasis who presents following a syncopal episode
Maintaining sinus rhythm on telemetry
Echo here shows normal LV function and moderate mitral regurgitation
Suspect syncopal episode was orthostatic in nature and in part due to his autonomic dysfunction from Parkinson's�appreciate neurology input
Chronically on midodrine
Florinef has been added
Continue with compression stockings and abdominal binder
Recommended elevating head of bed
Plan for PT/OT
We will sign off. He should follow-up with his primary tripe finisher at [facility].
Original Note:
Today's Communication / Plan
-
Florinef 0.1 mg daily added today
Midodrine 10 mg TID continued
EF and MR stable by echo
Impression / Plan
-
Primary Business Employment Specialist: Dr. Sanz of [facility]
Assessment:
Presentation with syncope 04/05/25
Recurrent syncopal episodes
Orthostatic hypotension
Parkinson's disease
Mitral valve prolapse with severe MR status post mitral valve repair 02/2016, Dr. Hinson
At least mod MR by echo 08/2024
History of postoperative atrial fibrillation 02/2016 without further recurrence
CAD status post NSTEMI with RCA PCI 11/2015
Dyslipidemia
History of fatigue with beta-dianna
ECHO 08/31/2024: Technically difficult study, EF 59%, #38 mitral annuloplasty band with neocord insertion in 2016, possible flail segment of a portion of posterior leaflet distal to near cord insertion, at least moderate eccentric anteriorly
directed jet of MR, transmitral gradient of 4 mmHg, severely dilated LA, at least mild TR
Echo 04/05/2025: EF 55%, normal regional wall motion, normal RV size and function, s/p mitral valve repair with peak/mean 7.5/2 mmHg, moderate eccentric MR, aortic sclerosis without stenosis
Plan:
-Patient presented with syncope. He has history of Parkinson's disease with orthostatic hypotension and recurrent syncopal episodes having recently been uptitrated on midodrine.
-Neurology note reviewed and patient started on Florinef 0.1 mg daily starting 04/06/25.
-Outpatient dose of midodrine 10 mg TID has been continued
-Patient remains markedly orthostatic by vital signs 04/06/2025, medication changes as above
-Outpatient dose of ropinirole is now on hold as it is likely contributing to orthostasis
-Echo from 04/05/2025 reviewed and outlined above by me. Patient with preserved EF of 55% and stable moderate MR.
Progress Note - Business Employment Specialist
Subjective
Date of Service: April 06, 2025
Dizzy with change in position
Objective
Labs:
04/04/25 17:38
04/04/25 17:38
Labs
Hgb 14.1 g/dL (13.0-18.0) 04/04/25 17:38
Hct 40.5 % (39.0-52.0) 04/04/25 17:38
Plt Count 149 10^3/uL (130-400) 04/04/25 17:38
Sodium 137 mmol/L (135-145) 04/04/25 17:38
Potassium 4.5 mmol/L (3.5-5.1) 04/04/25 17:38
BUN 19 mg/dl (9-20) 04/04/25 17:38
Creatinine 0.8 mg/dL (0.7-1.3) 04/04/25 17:38
Glucose 111 mg/dl (70-99) H 04/04/25 17:38
Vital Signs and I&O:
Vital Signs
Temp Pulse Resp BP Pulse Ox
97.4 F 80 16 141/86 98
04/06/25 11:00 04/06/25 11:00 04/06/25 11:00 04/06/25 11:00 04/06/25 11:00
Vital Signs
Temp Pulse Resp BP Pulse Ox
97.4 F 80 16 141/86 98
04/06/25 11:00 04/06/25 11:00 04/06/25 11:00 04/06/25 11:00 04/06/25 11:00
Intake & Output
04/04/25 04/05/25 04/06/25 04/07/25
06:59 06:59 06:59 06:59
Output Total 1000 / 1000 2225 / 2225
Balance -1000 / -1000 -2225 / -2225
Physical Exam
Physical Exam
GEN: AAOx3
LUNGS: RA
CV: SR on tele
--- NOTE | 2025-04-06 14:52 | W.PN.HOSP.TC ---
Today's Communication/Plan
-
CW current tx
DC Ropinirole
CW PT/OT
Assessment / Plan
Assessment / Plan
IMPRESSION:
61-year-old male with past medical history significant for Parkinson's disease, CAD status post stenting, mitral valve repair, development of orthostatic hypotension and recurrent dizziness and syncopal episode was brought to the emergency
department for syncopal episode and a fall by spouse with concern for worsening symptoms. Found to be orthostatic by about 40 systolic blood pressure points today in the emergency department. Workup otherwise negative.
PLAN:
Syncope/orthostatic hypotension
- Suspect secondary to Parkinson disease and its treatments. Echocardiogram shows normal EF. A.m. cortisol was 6.1. TSH normal at 1.28. Creatinine normal.
- Appreciate cardiology and neurology input.
- Patient advised to caution first. Put on a abdominal binder and IDRIS stockings. Florinef is added to his midodrine which is at max dose. Will consider adding droxidopa if still symptomatic.
Parkinson's disease-continue with carbidopa.
Continue with PT OT
DVT prophylaxis�SCDs
CODE STATUS�full code
Anticipated Discharge: 24 - 48 hours
Subjective/Interval History
-
Date of Service: April 06, 2025
Still having orthostatic drop in blood pressure which is symptomatic.
He tells me that his neurologist was okay for propranolol to come off completely. He was getting tapered down as outpatient.
No extrarenal losses-no diarrhea, no nausea vomiting. Eating okay.
Objective Data
-
Vital Signs:
Vital Signs
Temp Pulse Resp BP Pulse Ox
97.4 F 80 16 141/86 98
04/06/25 11:00 04/06/25 11:00 04/06/25 11:00 04/06/25 11:00 04/06/25 11:00
I&O
04/05/25 04/06/25 04/07/25
06:59 06:59 06:59
Output Total 999 / 999
Balance -999 / -999 -2224
Physical Exam
-
Respiratory: Non Labored Respirations; Negative Accessory Resp Muscle Use
Cardiac: Regular Rhythm and S1/S2
GI: Soft and Nontender
Neuro: AO x 3
Psych: Calm
Data Reviewed
-
Labs: Labs Reviewed by me
[2025-04-06 18:58] LABS: Hepatitis C Antibody Negative (Negative)
[2025-04-06] MEDS: ZETIA 10 MG PO (22:12)
[2025-04-07 03:10] VITALS: BP 126/85
[2025-04-07 05:59] VITALS: BMI 23.4
[2025-04-07 07:47] VITALS: BP 99/58
[2025-04-07] MEDS: RASAGILINE MESYLATE 1 MG PO (08:03)
[2025-04-07] MEDS: FLORINEF 0.1 MG PO (08:03)
[2025-04-07] MEDS: ASPIR LOW (ENTERIC COATED) 81 MG PO (08:04)
[2025-04-07] MEDS: CRESTOR 40 MG PO (08:04)
[2025-04-07] MEDS: NON-FORMULARY ITEM 1 CAP PO ×2 (08:05→16:17)
[2025-04-07 11:42] VITALS: BP 124/84; BP 63/40; PULSE 78; PULSE 84
[2025-04-07] MEDS: DROXIDOPA 100 MG PO ×2 (11:50→17:49)
[2025-04-07 15:12] VITALS: BP 119/73
[2025-04-07 21:04] VITALS: BP 105/64; BP 155/90; BP 74/42; PULSE 82; PULSE 94; PULSE 98
[2025-04-07] MEDS: ZETIA 10 MG PO (21:52)
[2025-04-07] MEDS: NON-FORMULARY ITEM 2 CAP PO (21:52)
[2025-04-07 23:00] VITALS: BP 149/96
[2025-04-08] VITALS (8 sets, daily range): BP systolic 59–154; BP diastolic 37–99; PULSE 80
[2025-04-08] MEDS: ASPIR LOW (ENTERIC COATED) 81 MG PO (07:59)
[2025-04-08] MEDS: DROXIDOPA 100 MG PO (07:59)
[2025-04-08] MEDS: FLORINEF 0.1 MG PO (07:59)
[2025-04-08] MEDS: CRESTOR 40 MG PO (07:59)
[2025-04-08] MEDS: RASAGILINE MESYLATE 1 MG PO (07:59)
[2025-04-08] MEDS: NON-FORMULARY ITEM 2 CAP PO ×3 (08:01→20:43)
--- NOTE | 2025-04-08 12:20 | CM ---
Patient seen at bedside with
admitted with falls/orthostatic hypotension
PT/OT evals-will continue to follow recs
PLAN: tbd, continue to follow PT/OT progress
--- NOTE | 2025-04-08 12:29 | W.PN.HOSP.TC ---
Today's Communication/Plan
-
still with symptomatic orthostasis
check Cosyntropin STIM TEST
decrease BP meds as able
increase droxidopa as tolerated
Assessment / Plan
Assessment / Plan
pt is a 64 year old male
Syncope/severe orthostatic hypotension--likely due to Parkinson's along with BP meds-- Echocardiogram shows normal EF. A.m. cortisol was 6.1. TSH normal at 1.28-- no improvement with midodrine or droxidopa--will check cosyntropin STIM test despite
normal cortisol--apprec neuro/cards-- Ropinirole was completely discontinued--teds and abdominal binder also not helping
Parkinson's disease-continue with carbidopa.
DVT prophylaxis�SCDs
CODE STATUS�full code
Anticipated Discharge: > 48 hours
Subjective/Interval History
-
Date of Service: April 08, 2025
pt has not been out of bed due to orthostatics
Objective Data
-
Vital Signs:
max temp for 24 hours
04/07/25
15:12
Temp 98.0 F
Vital Signs
Temp Pulse Resp BP Pulse Ox
97.6 F 82 16 154/99 99
04/08/25 11:14 04/08/25 11:14 04/08/25 11:14 04/08/25 11:14 04/08/25 11:14
I&O
04/07/25 04/08/25 04/09/25
06:59 06:59 06:59
Intake Total 2220 / 2220 960 / 960
Output Total 3175 / 3175 1550 / 1550
Balance -955 / -955 -590 / -590
Review of Systems
-
All other systems: Reviewed and negative
Physical Exam
-
General: Well Developed, No Apparent Distress and Other (appears very thin and frail)
HEENT: Normocephalic and Atraumatic
Respiratory: Clear to Auscultation; Negative Wheezes or Rhonchi
Cardiac: Regular Rhythm and S1/S2; Negative Murmur
GI: Soft, Nontender, Nondistended and Normal Bowel Sounds
Musculoskeletal: No Clubbing, No Cyanosis and No Edema
Neuro: Awake
Psych: Calm
[2025-04-08] MEDS: DROXIDOPA 200 MG PO ×2 (13:32→18:06)
[2025-04-08] MEDS: ZETIA 10 MG PO (20:43)
[2025-04-09] VITALS (7 sets, daily range): BP systolic 88–170; BP diastolic 55–96; PULSE 84–100
[2025-04-09 07:12] LABS: Hematocrit 37.3 % (39.0-52.0); Hemoglobin 13.0 g/dL (13.0-18.0); Mean Corp Hgb Conc. 34.9 g/dL (33.0-37.0); Mean Corpuscular Volume 90.8 fL (80.0-94.0); Platelet Count 135 10^3/uL (130-400); Red Cell Dist. Width 13.2 % (11.5-14.5)
[2025-04-09 07:28] LABS: ALT (SGPT) 15 U/L (0-50); AST (SGOT) 44 U/L (17-59); Albumin 3.8 g/dl (3.5-5.0); Blood Urea Nitrogen 20 mg/dl (9-20); Calcium 9.1 mg/dl (8.4-10.2); Carbon Dioxide 27 mmol/L (22-30); Chloride 108 mmol/L (98-107); Estimated Creatinine Clearance 119 ml/min; Glucose 85 mg/dl (70-99); Magnesium 2.4 mg/dl (1.6-2.3); Potassium 4.0 mmol/L (3.5-5.1); Sodium 141 mmol/L (135-145); Total Protein 6.0 g/dl (6.3-8.2); eGFR > 60.00
[2025-04-09 07:37] LABS: Alkaline Phosphatase 46 U/L (38-126)
[2025-04-09] MEDS: CORTROSYN 0.25 MG IV (07:58)
[2025-04-09] MEDS: NSS (PRESERVATIVE FREE) 1 ML IV (07:58)
[2025-04-09 07:59] LABS: ACTH Stim Cortisol 0 Min 5.1 ug/dl
[2025-04-09] MEDS: ASPIR LOW (ENTERIC COATED) 81 MG PO (08:47)
[2025-04-09] MEDS: DROXIDOPA 200 MG PO ×3 (08:47→17:17)
[2025-04-09] MEDS: CRESTOR 40 MG PO (08:47)
[2025-04-09] MEDS: PROZAC 20 MG PO (08:48)
[2025-04-09] MEDS: RASAGILINE MESYLATE 1 MG PO (08:48)
[2025-04-09] MEDS: NON-FORMULARY ITEM 2 CAP PO ×3 (08:48→21:14)
[2025-04-09] MEDS: FLORINEF 0.1 MG PO (08:48)
[2025-04-09 09:34] LABS: ACTH Stim Cortisol 30 Min 15.3 ug/dl
[2025-04-09 09:59] LABS: ACTH Stim Cortisol 60 Min 18.4 ug/dl
--- NOTE | 2025-04-09 10:17 | W.PN.HOSP.TC ---
Today's Communication/Plan
-
add hydrocortisone
follow orthostatic BPs
Assessment / Plan
Assessment / Plan
pt is a 64 year old male
Syncope/severe orthostatic hypotension--likely due to Parkinson's along with BP meds-- Echocardiogram shows normal EF-- TSH normal at 1.28-- no improvement with midodrine or droxidopa-- cosyntropin STIM test shows relative adrenal insufficiency
(values did NOT rise above 20 at either 30 or 60 minutes) --apprec neuro/cards-- Ropinirole was completely discontinued--teds and abdominal binder also not helping--add hydrocortisone 20 mg QAM and 10 mg QPM (physiologic doses)
Parkinson's disease--continue with carbidopa.
DVT prophylaxis-�SCDs
CODE STATUS-�full code
Anticipated Discharge: 24 - 48 hours
Subjective/Interval History
-
Date of Service: April 09, 2025
pt BP drops with standing still
Objective Data
-
Labs:
Laboratory Results
04/09/25
06:42
WBC 7.2
Hgb 13.0
Hct 37.3 L
Plt Count 135
Sodium 141
Potassium 4.0
Chloride 108 H
Carbon Dioxide 27
BUN 20
Creatinine 0.7
Glucose 85
Calcium 9.1
Total Bilirubin 0.6
AST 44
ALT 15
Alkaline Phosphatase 46
Laboratory Tests
04/09/25 04/09/25 04/09/25
06:42 08:28 09:00
Cortisol Baseline 5.1
Cortisol Resp ACTH 30m 15.3
Cortisol Resp ACTH 60m 18.4
Vital Signs:
max temp for 24 hours
04/08/25
23:00 04/09/25
10:06
Temp 98.0 F
Supine- Blood Pressure 124/76
Sitting- Blood Pressure 101/73
Standing- Blood Pressure 88/60
Standing- Pulse 100
Supine- Pulse 91
Sitting- Pulse 95
Vital Signs
Temp Pulse Resp BP Pulse Ox
99.1 F 84 17 99/61 96
04/09/25 07:00 04/09/25 07:00 04/09/25 07:00 04/09/25 07:00 04/09/25 07:00
I&O
04/08/25 04/09/25 04/10/25
06:59 06:59 06:59
Intake Total 960 / 960 890 / 890
Output Total 1550 / 1550 1600 / 1600
Balance -590 / -590 -710 / -710
Review of Systems
-
All other systems: Reviewed and negative
Physical Exam
-
General: Well Developed, Well Nourished and No Apparent Distress
HEENT: Normocephalic and Atraumatic
Respiratory: Clear to Auscultation; Negative Wheezes or Rhonchi
Cardiac: Regular Rhythm and S1/S2; Negative Murmur
GI: Soft, Nontender, Nondistended and Normal Bowel Sounds
Musculoskeletal: No Clubbing, No Cyanosis and No Edema
Neuro: Awake and Alert
[2025-04-09] MEDS: CORTEF 20 MG PO (11:34)
[2025-04-09] MEDS: CORTEF 10 MG PO (17:17)
[2025-04-09] MEDS: ZETIA 10 MG PO (21:15)
[2025-04-10] VITALS (8 sets, daily range): BP systolic 95–147; BP diastolic 63–87; PULSE 83–85; BMI 23.4
[2025-04-10 07:27] LABS: Hematocrit 36.2 % (39.0-52.0); Hemoglobin 12.7 g/dL (13.0-18.0); Mean Corp Hgb Conc. 35.1 g/dL (33.0-37.0); Mean Corpuscular Volume 90.7 fL (80.0-94.0); Platelet Count 128 10^3/uL (130-400); Red Cell Dist. Width 13.1 % (11.5-14.5)
[2025-04-10] MEDS: ASPIR LOW (ENTERIC COATED) 81 MG PO (09:02)
[2025-04-10] MEDS: CRESTOR 40 MG PO (09:02)
[2025-04-10] MEDS: CORTEF 20 MG PO (09:02)
[2025-04-10] MEDS: RASAGILINE MESYLATE 1 MG PO (09:03)
[2025-04-10] MEDS: PROZAC 20 MG PO (09:03)
[2025-04-10] MEDS: DROXIDOPA 200 MG PO ×3 (09:03→17:08)
[2025-04-10] MEDS: FLORINEF 0.1 MG PO (09:04)
[2025-04-10 09:17] LABS: Blood Urea Nitrogen 18 mg/dl (9-20); Calcium 9.3 mg/dl (8.4-10.2); Carbon Dioxide 26 mmol/L (22-30); Chloride 109 mmol/L (98-107); Estimated Creatinine Clearance 119 ml/min; Glucose 87 mg/dl (70-99); Magnesium 2.8 mg/dl (1.6-2.3); Potassium 3.8 mmol/L (3.5-5.1); Sodium 141 mmol/L (135-145); eGFR > 60.00
[2025-04-10] MEDS: NON-FORMULARY ITEM 2 CAP PO ×3 (10:11→21:26)
--- NOTE | 2025-04-10 13:26 | W.PN.HOSP.TC ---
Addendum entered and electronically signed by Adriane Lee MD 04/10/25 16:53:
I saw and evaluated the patient independently. I reviewed the resident�s note and agree with findings and plan as documented by Dr. Allred.
GENERAL: well developed, well nourished, male in no apparent distress
HEENT: NC/AT
HEART: regular rate and rhythm, +S1, +S2, PETRA
LUNGS : clear to auscultation bilaterally
ABDOM: soft, nontender, nondistended, + bowel sounds
EXT: no cyanosis, clubbing, or edema
NEUROLOGIC: Parkinson's movements
Syncope/severe orthostatic hypotension--likely due to Parkinson's along with BP meds-- Echocardiogram shows normal EF-- TSH normal at 1.28-- no significnat improvement with midodrine or droxidopa-- cosyntropin STIM test shows relative adrenal
insufficiency (values did NOT rise above 20 at either 30 or 60 minutes) --apprec neuro/cards-- Ropinirole was completely discontinued--teds and abdominal binder also not helping--added hydrocortisone 20 mg QAM and 10 mg QPM (physiologic
doses)--cont midodrine and droxidopa
Parkinson's disease--continue with carbidopa--ropinirole stopped
DVT prophylaxis-�SCDs
CODE STATUS-�full code
did well with PT--walked 50-60 ft without drop in BP and not symptomatic
Original Note:
Today's Communication/Plan
-
Sent C diff cultures
Assessment / Plan
Assessment / Plan
Mr. Oviedo is a 64 year old man with a pmh of CAD s/p stent, severe MR s/p repair in 2016 at [facility], Parkinson's disease, and hyperlipidemia chronically on midodrine admitted for syncope and fall in the setting of severe orthostatic hypotension.
#Orthostatic hypotension
#dizziness
#syncope
possibly due to new medication ropinirole
unlikely cardiac in nature, echo shows normal EF
Co STIM positive for relative AI
midodrine 10mg TID
droxidopa 200mg TID
florinef 0.1mg QD
Hydrocortisone 20-10mg QD
abdominal binder
compression stockings
#Diarrhea
large quantity, watery
C diff test
#Parkinson's
patient was on ropinirole, carbidopa-droxidopa
DC ropinirole per neuro recs
continue carbidopa-droxidopa 87-350 2 cap TID
continue rasagiline 1mg QD
Flouxetine 20mg QD
#Mitral Regurgitation s/p repair 02/2016, Dr. Hinson
mod MR by echo 08/2024
Echo here shows normal LV function and moderate mitral regurgitation
#CAD s/p stent
NSTEMI with RCA PCI 11/2015
aspirin 81mg
#Hyperlipidemia
Zetia 10mg QD
Crestor 40mg QD
DVT prophylaxis-�SCDs
CODE STATUS-�full code
Anticipated Discharge: 24 - 48 hours
Subjective/Interval History
-
Patient was seen at bed today, MINDY. He reports feeling better after the addition of medication yesterday. he still has some dizziness but has been having improved BP readings.
He did report having a large amount of diarrhea last night.
Date of Service: April 10, 2025
Objective Data
-
Labs:
Laboratory Results
04/10/25
06:02
WBC 9.3
Hgb 12.7 L
Hct 36.2 L
Plt Count 128 L
Sodium 141
Potassium 3.8
Chloride 109 H
Carbon Dioxide 26
BUN 18
Creatinine 0.7
Glucose 87
Calcium 9.3
Vital Signs:
Vital Signs
Temp Pulse Resp BP Pulse Ox
98.0 F 83 17 126/80 100
04/10/25 11:03 04/10/25 11:03 04/10/25 11:03 04/10/25 11:03 04/10/25 11:03
I&O
04/09/25 04/10/25 04/11/25
06:59 06:59 06:59
Intake Total 890 / 890 600 / 600
Output Total 1600 / 1600 1045 / 1045
Balance -710 / -710 -445 / -445
Review of Systems
-
History Source: Patient
EENT: Reports No Symptoms Reported
Respiratory: Reports No Symptoms
Cardiac: Reports No Symptoms
Abdomen/GI: Reports Diarrhea
Genitourinary: Reports No Symptoms
Musculoskeletal: Reports No Symptoms
Neuro: Reports Dizzy, Headache (negative) and Lightheadedness (negative)
Physical Exam
-
General: No Apparent Distress and Comfortable
HEENT: Atraumatic and Moist Mucous Membranes
Respiratory: Clear to Auscultation
Cardiac: Regular Rhythm, S1/S2 and Murmur (negative)
GI: Soft and Nontender
Skin: Warm and Dry
Neuro: Awake, Alert and Oriented
--- NOTE | 2025-04-10 14:48 | CM ---
Patient seen at bedside on with physicians. Patient seen by therapy and recommendation is for out patient therapy when BP is stabilized. CM will continue to follow for discharge planning needs. CM will continue to follow for discharge
planning needs.
Plan; home with outpatient therapy vs VN
[2025-04-10] MEDS: CORTEF 10 MG PO (17:08)
[2025-04-10] MEDS: ZETIA 10 MG PO (21:19)
[2025-04-11] VITALS (12 sets, daily range): BP systolic 62–157; BP diastolic 38–92; PULSE 83–98
--- NOTE | 2025-04-11 07:17 | PTCARENOTE ---
Pt was on the commode and complaining of light spots in his field of vision. BP was 62/38 manual while Pt was seated. Got Pt back in to bed and retook Bp 115/67. Messaged DE who advised to give 0800 Midodrine early.
[2025-04-11 07:22] LABS: Hematocrit 38.1 % (39.0-52.0); Hemoglobin 12.9 g/dL (13.0-18.0); Mean Corp Hgb Conc. 33.9 g/dL (33.0-37.0); Mean Corpuscular Volume 92.3 fL (80.0-94.0); Platelet Count 138 10^3/uL (130-400); Red Cell Dist. Width 13.2 % (11.5-14.5)
[2025-04-11 08:27] LABS: Blood Urea Nitrogen 20 mg/dl (9-20); Calcium 8.8 mg/dl (8.4-10.2); Carbon Dioxide 25 mmol/L (22-30); Chloride 110 mmol/L (98-107); Estimated Creatinine Clearance 104 ml/min; Glucose 97 mg/dl (70-99); Magnesium 2.4 mg/dl (1.6-2.3); Potassium 3.9 mmol/L (3.5-5.1); Sodium 142 mmol/L (135-145); eGFR > 60.00
[2025-04-11] MEDS: FLORINEF 0.1 MG PO (08:52)
[2025-04-11] MEDS: RASAGILINE MESYLATE 1 MG PO (08:52)
[2025-04-11] MEDS: CORTEF 20 MG PO (08:52)
[2025-04-11] MEDS: CRESTOR 40 MG PO (08:52)
[2025-04-11] MEDS: DROXIDOPA 200 MG PO ×3 (08:52→17:07)
[2025-04-11] MEDS: ASPIR LOW (ENTERIC COATED) 81 MG PO (08:52)
[2025-04-11] MEDS: NON-FORMULARY ITEM 2 CAP PO ×3 (08:53→22:14)
[2025-04-11] MEDS: PROZAC 20 MG PO (08:53)
--- NOTE | 2025-04-11 09:16 | W.PN.HOSP.TC ---
Addendum entered and electronically signed by Adriane Lee MD 04/11/25 17:16:
I saw and evaluated the patient independently. I reviewed the resident�s note and agree with findings and plan as documented by Dr. Allred.
GENERAL: well developed, well nourished, male in no apparent distress
HEENT: NC/AT
HEART: regular rate and rhythm, +S1, +S2, PETRA
LUNGS : clear to auscultation bilaterally
ABDOM: soft, nontender, nondistended, + bowel sounds
EXT: no cyanosis, clubbing, or edema
NEUROLOGIC: Parkinson's movements
Syncope/severe orthostatic hypotension--likely due to Parkinson's along with BP meds-- Echocardiogram shows normal EF, TSH normal at 1.28-- no significant improvement with midodrine or droxidopa-- cosyntropin STIM test shows relative adrenal
insufficiency (values did NOT rise above 20 at either 30 or 60 minutes) --apprec neuro/cards-- Ropinirole was completely discontinued--teds and abdominal binder also not helping--added hydrocortisone 20 mg QAM and 10 mg QPM (physiologic
doses)--cont midodrine, fludrocortisone, and droxidopa--consult neuro again for opinion
Parkinson's disease--continue with carbidopa--ropinirole stopped
DVT prophylaxis-�SCDs
CODE STATUS-�full code
04/10 did well with PT--walked 50-60 ft without drop in BP and not symptomatic--however, during the night pt BP dropped to 60/40 and was symptomatic
Original Note:
Today's Communication/Plan
-
follow orthostatic BPs
Re evaluation by PT
stool culture not sent, patients diarrhea stopped
Neurology consult
Assessment / Plan
Assessment / Plan
Mr. Oviedo is a 64 year old man with a pmh of CAD s/p stent, severe MR s/p repair in 2016 at [facility], Parkinson's disease, and hyperlipidemia chronically on midodrine admitted for syncope and fall in the setting of severe orthostatic hypotension.
Orthostatic hypotension likely due to starting new medication ropinirole. Patient evaluated by neurology who DC ropinirole.
#Orthostatic hypotension
#dizziness
#syncope
possibly due to new medication ropinirole
unlikely cardiac in nature, echo shows normal EF
Co STIM positive for relative AI
midodrine 10mg TID
droxidopa 200mg TID
florinef 0.1mg QD
Hydrocortisone 20-10mg QD
abdominal binder
compression stockings
#Diarrhea
large quantity, watery
C diff test
#Parkinson's
patient was on ropinirole, carbidopa-levodopa
DC ropinirole per neuro recs
continue carbidopa-levodopa 87-350 2 cap TID
continue rasagiline 1mg QD
Fluoxetine 20mg QD
Neurology consult 04/11
#Mitral Regurgitation s/p repair 02/2016, Dr. Hinson
mod MR by echo 08/2024
Echo here shows normal LV function and moderate mitral regurgitation
#CAD s/p stent
NSTEMI with RCA PCI 11/2015
aspirin 81mg
#Hyperlipidemia
Zetia 10mg QD
Crestor 40mg QD
DVT prophylaxis
SCDs
CODE STATUS
Full code
Anticipated Discharge: 24 - 48 hours
Subjective/Interval History
-
Patient was seen at bedside. He reports feeling better than the past few days. Yesterday he was able to ambulate with PT without symptomatic hypotension. However, he did have an episode of symptomatic hypotension when he was getting up to use the
commode. BP dipped to 60/40 but then improved to 115/70 with resolution of symptoms. He reports being able to use the commode other times without issues. Patient wants PT to talk with regarding needs outside of the hospital.
He reports not having another episode of diarrhea and was unable to provide stool sample for testing. Date of Service: April 11, 2025
Objective Data
-
Labs:
Laboratory Results
04/11/25
07:07
WBC 7.9
Hgb 12.9 L
Hct 38.1 L
Plt Count 138
Sodium 142
Potassium 3.9
Chloride 110 H
Carbon Dioxide 25
BUN 20
Creatinine 0.8
Glucose 97
Calcium 8.8
Vital Signs:
Vital Signs
Temp Pulse Resp BP Pulse Ox
97.8 F 76 14 157/92 100
04/11/25 07:47 04/11/25 07:47 04/11/25 07:47 04/11/25 07:47 04/11/25 07:47
I&O
04/10/25 04/11/25 04/12/25
06:59 06:59 06:59
Intake Total 600 / 600 600 / 600 1440 / 1440
Output Total 1045 / 1045 800 / 800 670 / 670
Balance -445 / -445 -200 / -200 770 / 770
Review of Systems
-
History Source: Patient
Constitutional: Reports No Symptoms; Denies Fever
EENT: Reports No Symptoms Reported
Respiratory: Reports No Symptoms; Denies Cough or Trouble Breathing
Cardiac: Reports No Symptoms; Denies Chest Pain
Abdomen/GI: Reports Diarrhea; Denies Abdominal Pain, Nausea or Vomiting
Genitourinary: Reports No Symptoms
Skin: Reports No Symptoms
Neuro: Reports Dizzy
Physical Exam
-
General: Well Developed, Well Nourished, No Apparent Distress and Comfortable
HEENT: Normocephalic and Atraumatic
Respiratory: Clear to Auscultation; Negative Wheezes, Rales or Crackles
Cardiac: Regular Rhythm, S1/S2 and Murmur
GI: Soft, Nontender, Nondistended and Normal Bowel Sounds
Musculoskeletal: No Clubbing, No Cyanosis and No Edema
Skin: Warm and Dry
Neuro: Awake and Alert
--- NOTE | 2025-04-11 13:14 | PN.CDI ---
Addendum entered and electronically signed by Adriane Lee MD 04/11/25 17:11:
documentation is complete. Cannot tell with certainty the etiology--it is likely due to Parkinson's and BP meds--cannot say any more significantly than that
Original Note:
CDI
- -
CDI:
Physician Documentation Request
Admit Date: 04/07/25 07:55
Clive Allred,
Patient admitted for management of Syncope/severe orthostatic hypotension--likely due to Parkinson's along with BP meds
Please further specify the etiology of the orthostatic hypotension, such as:
-Neurogenic orthostatic hypotension
-Orthostatic hypotension only
-Other (please specify)
Use of terms such as suspected, likely, concern for, or probable (associated with a specific diagnosis that is being evaluated, monitored, or treated as if it exists) are acceptable and can be coded in the inpatient setting, when documented at the
time of discharge.
Thank you,
Clara Pace RN, BSN
CDI Specialist
tiger text
Please use your independent medical judgment in providing your response.
--- NOTE | 2025-04-11 15:35 | CM ---
Patient seen at bedside with physicians on . Patient eager to go home but with concerns re dizziness at times. CM will continue to follow for discharge planning needs.
Plan; home with VN vs outpatient therapy; pending medical treatment plan
[2025-04-11] MEDS: CORTEF 10 MG PO (17:11)
[2025-04-11] MEDS: ZETIA 10 MG PO (22:14)
[2025-04-12 03:00] VITALS: BP 92/57
[2025-04-12 05:32] LABS: Hematocrit 37.0 % (39.0-52.0); Hemoglobin 12.8 g/dL (13.0-18.0); Mean Corp Hgb Conc. 34.6 g/dL (33.0-37.0); Mean Corpuscular Volume 90.5 fL (80.0-94.0); Platelet Count 144 10^3/uL (130-400); Red Cell Dist. Width 13.1 % (11.5-14.5)
[2025-04-12 05:55] LABS: Blood Urea Nitrogen 24 mg/dl (9-20); Calcium 9.5 mg/dl (8.4-10.2); Carbon Dioxide 30 mmol/L (22-30); Chloride 108 mmol/L (98-107); Estimated Creatinine Clearance > 125 ml/min; Glucose 93 mg/dl (70-99); Magnesium 2.6 mg/dl (1.6-2.3); Potassium 4.2 mmol/L (3.5-5.1); Sodium 140 mmol/L (135-145); eGFR > 60.00
[2025-04-12 07:47] VITALS: BP 96/60
[2025-04-12] MEDS: NON-FORMULARY ITEM 2 CAP PO ×2 (09:00→16:51)
[2025-04-12] MEDS: ASPIR LOW (ENTERIC COATED) 81 MG PO (09:00)
[2025-04-12] MEDS: CORTEF 20 MG PO (09:01)
[2025-04-12] MEDS: DROXIDOPA 200 MG PO ×3 (09:01→17:20)
[2025-04-12] MEDS: PROZAC 20 MG PO (09:02)
[2025-04-12] MEDS: RASAGILINE MESYLATE 1 MG PO (09:02)
[2025-04-12] MEDS: FLORINEF 0.1 MG PO (09:02)
[2025-04-12] MEDS: CRESTOR 40 MG PO (09:03)
[2025-04-12 10:35] VITALS: BP 107/62
[2025-04-12 11:17] VITALS: BP 113/69
--- NOTE | 2025-04-12 13:34 | W.PN.HOSP.TC ---
Addendum entered and electronically signed by Adriane Lee MD 04/12/25 15:39:
I saw and evaluated the patient independently. I reviewed the resident�s note and agree with findings and plan as documented by Dr. Allred.
GENERAL: well developed, well nourished, male in no apparent distress
HEENT: NC/AT
HEART: regular rate and rhythm, +S1, +S2, PETRA
LUNGS : clear to auscultation bilaterally
ABDOM: soft, nontender, nondistended, + bowel sounds
EXT: no cyanosis, clubbing, or edema
NEUROLOGIC: Parkinson's movements
Syncope/severe orthostatic hypotension--likely due to Parkinson's along with BP meds-- Echocardiogram shows normal EF, TSH normal at 1.28-- no significant improvement with midodrine or droxidopa-- cosyntropin STIM test shows relative adrenal
insufficiency (values did NOT rise above 20 at either 30 or 60 minutes) --apprec neuro/cards-- Ropinirole was completely discontinued--teds and abdominal binder--added hydrocortisone 20 mg QAM and 10 mg QPM (physiologic doses)--cont midodrine,
fludrocortisone, and droxidopa--apprec neuro
Parkinson's disease--continue with carbidopa--ropinirole stopped
DVT prophylaxis-�SCDs
CODE STATUS-�full code
OK for d/c
Original Note:
Today's Communication/Plan
-
Patient stable for discharge
Assessment / Plan
Assessment / Plan
Mr. Oviedo is a 64 year old man with a pmh of CAD s/p stent, severe MR s/p repair in 2016 at [facility], Parkinson's disease, and hyperlipidemia chronically on midodrine admitted for syncope and fall in the setting of severe orthostatic hypotension.
Orthostatic hypotension likely due to starting new medication ropinirole. Patient evaluated by neurology who DC ropinirole.
#Orthostatic hypotension, neurogenic and medication induced
#dizziness
#syncope
due to underlying parkinson's and new medication ropinirole
unlikely cardiac in nature, echo shows normal EF
Co STIM positive for relative AI
midodrine 10mg TID
droxidopa 300mg TID
florinef 0.1mg QD
Hydrocortisone 20-10mg QD
abdominal binder
compression stockings
Appreciate neurology recs per tiger text
increase droxidopa to 300TID then increase by 100 TID until 600 TID or symptom resolution, continue midodrine and florinef
#Diarrhea resolved
large quantity, watery x1
C diff test not collected
resolved 04/11
#Parkinson's
patient was on ropinirole, carbidopa-levodopa
DC ropinirole per neuro recs
continue carbidopa-levodopa 87-350 2 cap TID
continue rasagiline 1mg QD
Fluoxetine 20mg QD
Neurology consult, appreciate recs
#Mitral Regurgitation s/p repair 02/2016, Dr. Hinson
mod MR by echo 08/2024
Echo here shows normal LV function and moderate mitral regurgitation
#CAD s/p stent
NSTEMI with RCA PCI 11/2015
aspirin 81mg
#Hyperlipidemia
Zetia 10mg QD
Crestor 40mg QD
DVT prophylaxis
SCDs
CODE STATUS
Full code
Anticipated Discharge: Today
Subjective/Interval History
-
Patient seen at bedside today. MINDY. He states having an episode of dizziness when his BP is being tested. He reports that most of his dizziness is at night or when using the bathroom. Last episode was yesterday. He states that he knows he has to
manage his symptoms and we discussed treating symptoms and not numbers. We counseled on safe ways to transfer and move in the setting of orthostatic hypotension. He had a discussion with neurology about management and he is happy to go home and
manage with outpatient neurology. Date of Service: April 12, 2025
Objective Data
-
Labs:
Laboratory Results
04/12/25
05:10
WBC 7.9
Hgb 12.8 L
Hct 37.0 L
Plt Count 144
Sodium 140
Potassium 4.2
Chloride 108 H
Carbon Dioxide 30
BUN 24 H
Creatinine 0.6 L
Glucose 93
Calcium 9.5
Vital Signs:
Vital Signs
Temp Pulse Resp BP Pulse Ox
98 F 84 14 113/69 100
04/12/25 11:17 04/12/25 11:17 04/12/25 11:17 04/12/25 11:17 04/12/25 11:17
I&O
04/11/25 04/12/25 04/13/25
06:59 06:59 06:59
Intake Total 600 / 600 3120 / 3120
Output Total 800 / 800 2495 / 2495
Balance -200 / -200 625 / 625
Review of Systems
-
History Source: Patient
Constitutional: Reports No Symptoms; Denies Fever or Fatigue
EENT: Reports No Symptoms Reported; Denies Sore Throat or Runny Nose
Respiratory: Reports No Symptoms; Denies Cough, Trouble Breathing or Wheezing
Cardiac: Reports No Symptoms; Denies Chest Pain or Palpitations
Abdomen/GI: Reports No Symptoms; Denies Abdominal Pain, Nausea or Vomiting
Genitourinary: Reports No Symptoms; Denies Dysuria
Musculoskeletal: Reports No Symptoms
Skin: Reports No Symptoms
Neuro: Reports Dizzy
Physical Exam
-
General: Well Developed, Well Nourished, No Apparent Distress and Comfortable
HEENT: Normocephalic and Atraumatic
Respiratory: Clear to Auscultation; Negative Wheezes or Crackles
Cardiac: Regular Rhythm, S1/S2 and Murmur
GI: Soft, Nontender, Nondistended and Normal Bowel Sounds
Musculoskeletal: No Cyanosis and No Edema
Skin: Warm and Dry
Neuro: Awake, Alert, Oriented and AO x 3
--- NOTE | 2025-04-12 14:08 | PTCARENOTE ---
patient denies dizziness or lightheadedness with activity, transferring to br with supervision with single point cane, tolerating diet, vss, abdominal binder and teds maintained, for discharge to home today with VN. will continue to monitor.
--- NOTE | 2025-04-12 14:32 | CM ---
Addendum entered by Eryn Dawkins 04/12/25 15:16:
Patient indicated pharmacy does not have medication. CM called to pharmacy and attempted to clarify when or where medication would be available.
Original Note:
Patient seen at bedside with patient and physicians. Patient stated that he wanted to go home. Script for PT/OT completed by phyisician and given to nursing. Patient to transport home, Patient does not have MC and will be going to
outpatient therapy for PT. CM will continue to follow for discharge planning needs.
Plan; home with outpatient therapy
[2025-04-12 15:52] VITALS: BP 135/84
--- NOTE | 2025-04-12 16:59 | W.DCSUMMARY ---
Addendum entered and electronically signed by Adriane Lee MD 04/12/25 19:00:
Read, reviewed, and agree. See same day progress note for additional details. Time spent coordinating care, DC planning, review of DC plan of care with resident, transition of care, review of records in EMR, med rec, consults, notes, d/w
consultants, nursing, family, and CM = 40 minutes
Original Note:
Discharge Summary
Discharge Data
Date of Admission: 04/07/25
Date of Discharge: 04/12/25
-
Pending Results: No
Hospital Course
Discharging Physician : Dr. Lee, Dr. Allred
Disposition : Home
Primary care physician : Unknown
Principal Discharge diagnosis : orthostatic hypotension, medication induced and neurogenic
Chronic Discharge diagnosis : Parkinson's disease, mitral regurgitation, Coronary Artery Disease, hyperlipidemia
Hospital Course :
This is a 64-year-old male with past medical history significant for Parkinson's disease, CAD status post stenting, mitral regurgitation with valve repair, development of orthostatic hypotension who has presented to the hospital on 04/04/25 with
report of frequent passing out episodes. Patient is followed as an outpatient by Neurology Dr. Roger at [facility] for Parkinson's disease. 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 They
report he was improved after starting this, until three days ago when he started having dizziness again and has now fainted three times in the past three days. In the ER CT head was obtained and is negative for any acute abnormalities. ECG was
positive for 1st degree block. HE was found to be very orthostatic with systolic in the 40s. for any abnormalities. In the hospital Cardiology was consulted to evaluate his medication and mitral regurgitation. His echo results showed a preserved EF
and stable MR. neurology was consulted and they evaluated him. They added fludrocortisone and discontinued ropinirole, abdominal binder and stockings were added on.
During his stay he continued to have issues with symptom management. PT and nursing reported that he would become symptomatic during their evaluations. A cosyntropin stimulation test was ordered to evaluate endocrine causes of his orthostatic
hypotension. His results came back positive indicating that there may be a component of adrenal insufficiency contributing. He was started on physiological doses of hydrocortisone. Initially he began improving and was able to walk with PT without
symptoms. He then relapsed and had a couple of episodes of symptomatic hypotension at night. Neurology was consulted to help with medication management. They recommended increasing his droxidopa and uptitrating it outpatient. He is medically stable
for discharge.
Important imaging findings :
CT Head 04/05
IMPRESSION: No acute intracranial abnormality.
Echo 04/05:
CONCLUSIONS
Normal left ventricular chamber size. Normal left ventricular systolic
function. Left ventricular ejection fraction is 55% by volumetric assessment.
Normal regional wall motion. Normal left ventricular wall thickness. Diastolic
function indeterminate.
Normal right ventricular size and function.
Indexed LA volume is severely abnormal (> 48 mL/m2).
Hx of Mitral Valve Repair - Peak gradient 7.5mmHg/Mean gradient 2mmHg - .
Mildly thickened redundant leaflets with moderate eccentric mitral
regurgitation.
Aortic sclerosis without stenosis.
Trace tricuspid regurgitation. Estimated pulmonary artery pressure of 20-25
mmHg assuming a right atrial pressure of 3 mmHg.
No prior study available for comparison.
Procedure findings :
n/a
Discharge Plan
-
Patient Disposition: Home (Routine Discharge)
Discharge Diagnosis/Procedures: orthostatic hypotension neurogenic and medication induced, parkinson's disease, mitral regurgitation, coronary artery disease, hyperlipidemia
Condition: Good
Diet: As tolerated and Regular
Activity: As tolerated
Driving Restrictions: As prior to admission
Bathing Restrictions: None
Referrals:
UNKNOWN - PT DOES,NOT KNOW [Family Provider] - in less than 1 week
Additional Discharge Medication Instructions: take midodrine 4 times a day, and fludrocortisone twice daily until you receive your droxidopa. Once you receive droxidopa you can return to fludrocortisone 0.1 daily and midodrine 10mg three times a
day.
Prescriptions:
New
droxidopa 100 mg Capsule
300 mg PO TID@0800,1300,1800 Qty: 90 0RF
fludrocortisone 0.1 mg tablet
0.1 mg PO BID Qty: 60 0RF
midodrine 10 mg tablet
10 mg PO QID Qty: 60 0RF
Continued
aspirin 81 mg Tablet
81 mg PO DAILY
ezetimibe 10 mg Tablet
10 mg PO HS
rosuvastatin 40 mg Tablet
40 mg PO DAILY
rasagiline 1 mg Tablet
1 mg PO DAILY
Crexont 87.5-350 mg Capsule,Ir -Extend Rel,Biphase
2 cap PO TID
fluoxetine 20 mg Tablet
20 mg PO DAILY
Discontinued
midodrine 10 mg Tablet
10 mg PO TID
ropinirole 2 mg Tablet Extended Release 24 Hr
2 mg PO HS
Discharge Orders:
Discharge Patient (As Directed); Ordered 04/12/25
Ordered By: Kristopher Allred
Discharge Date and Time
Discharge Date/Time: 04/12/25 18:45
Print Language: CHILEAN
[2025-04-12] MEDS: CORTEF 10 MG PO (17:24)
--- NOTE | 2025-04-12 20:11 | W.PN.NEURO.1 ---
Today's Communication / Plan
-
d/c home increase Northera 300 TID continue midondrine and florinef and parkinson's meds
Neuro Assessment/Plan
Assessment
Abrupt onset of worsening gait with previous diagnosis of parkinsonism. 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
The patient's gait dysfunction is most likely secondary to significant orthostatic hypotension and worsened currently by exposure to extreme heat
Plan
spoke with patient and that I would increase the droxidopa, given that it has less supine hypertension than the other two. can go up to 300 TID, d/c home, and he can follow the usual outpatient titration schedule of increasing by 100 TID every
3 days until max dose of 600 TID or symptoms controlled. I favor quality of life over concerns about the terminal worker complications of supine HTN
given that he is very active phyically and does not have a regular sleep schedule making meds timing difficult, discussed other options including DBS, FUS, Duopa.
discussed 'My Degeneration'
Subjective/Objective
Subjective Data
Date of Service: April 12, 2025
spoke extensively with patient and , parkinson's began 6-7 years ago initially presenting with worsening handwriting.responded very well to Sinemet. was started on Requip ~6 months ago and initially tolerated very well. The orthostatic
hypotension became a problem ~1 month ago, and despite stopping requip he has still required Florinef 0.1 BID, midodrine 10 qid, and Northera 200 TID to achieve fair symptom control though still quite orthostatic by the numbers.
other autonomic symptoms include urinary frequency, and dry mouth
Objective Data
Vital Signs
Temp Pulse Resp BP Pulse Ox
36.4 C 92 14 135/84 98
04/12/25 15:52 04/12/25 15:52 04/12/25 15:52 04/12/25 15:52 04/12/25 15:52
Lab Results
04/12/25 05:10
04/12/25 05:10
Sodium 140 mmol/L (135-145) 04/12/25 05:10
Potassium 4.2 mmol/L (3.5-5.1) 04/12/25 05:10
BUN 24 mg/dl (9-20) H 04/12/25 05:10
Glucose 93 mg/dl (70-99) 04/12/25 05:10
Calcium 9.5 mg/dl (8.4-10.2) 04/12/25 05:10
[id number] Pept 343 pg/ml 04/05/25 06:16
Patient Allergies
No Known Allergies Allergy (Unverified 04/04/25 17:25)
== END 2025-04-12 18:45 | disposition home or self-care (01) | DRG 57 ==
LOC: 3 WEST ACU 07:55
PROVIDERS: Emergency Medicine; Internal Medicine; Student in an Organized Health Care Education/Training Program; ADMITTING PHYSICIAN Internal Medicine; ATTENDING PHYSICIAN Internal Medicine; CONSULT PHYSICIAN Internal Medicine Cardiovascular Disease; CONSULT PHYSICIAN Psychiatry & Neurology Neurology; EMERGENCY PHYSICIAN Emergency Medicine; REFERRING PHYSICIAN Internal Medicine Interventional Cardiology
DX: G20.A1 Parkinson's disease without dyskinesia, without mention of fluctuations (principal); I95.1 Orthostatic hypotension; Z95.2 Presence of prosthetic heart valve; I25.10 Atherosclerotic heart disease of native coronary artery without angina pectoris; E78.00 Pure hypercholesterolemia, unspecified; Z79.82 Long term (current) use of aspirin; Z79.899 Other long term (current) drug therapy; F41.9 Anxiety disorder, unspecified; H55.00 Unspecified nystagmus; I25.2 Old myocardial infarction; I44.0 Atrioventricular block, first degree; I70.0 Atherosclerosis of aorta; W22.09XA Striking against other stationary object, initial encounter; S09.90XA Unspecified injury of head, initial encounter; W19.XXXA Unspecified fall, initial encounter; Z95.5 Presence of coronary angioplasty implant and graft; I95.2 Hypotension due to drugs; T42.8X5A Adverse effect of antiparkinsonism drugs and other central muscle-tone depressants, initial encounter
CPT/HCPCS: 70450; 80048; 80053; 81003; 82533; 83735; 83880; 84300; 84443; 85025; 85027; 86803; 93005; 93306; 96360; 97110; 97116; 97162; 97167; 97530; 99285